=== PATIENT | male | born 1975 | race American Indian/Alaskan Native ===

== ENCOUNTER 2018-07-07 08:25 | Emergency (ER) | payer SELFPAY ==
[~2018-07-07] VITALS: Ht 188 cm; Wt 111.1 kg
[~2018-07-07 08:25] MED LIST: CEPH500 PO; COLC.6 PO; CYCL10 PO; HYDACE5 PO; IBUP400 PO; NAPR500 PO; PENVK500 PO; RXCEPH500 PO; TRAM50 PO
[2018-07-07] MEDS ORDERED: COLCRYS0.6 MG PO (10:15)
== END 2018-07-07 10:31 | disposition home or self-care (01) ==
LOC: ER 08:25
DX: M10.9 Gout, unspecified (principal); F17.200 Nicotine dependence, unspecified, uncomplicated; Z79.899 Other long term (current) drug therapy
CPT/HCPCS: 73630; 96372; 99283-25; J1885

== ENCOUNTER 2023-08-23 05:47 | Emergency (ER) | payer SELFPAY ==
[~2023-08-23] VITALS: Ht 188 cm; Wt 120.2 kg
[~2023-08-23 05:47] MED LIST changes: +COLCRYS0.6 MG PO
[2023-08-23 06:11] VITALS: BP 150/72
[2023-08-23] MEDS ORDERED: IBUP800 PO (06:13)
== END 2023-08-23 08:02 | disposition home or self-care (01) ==
LOC: ER 05:47
DX: M25.572 Pain in left ankle and joints of left foot (principal); M25.571 Pain in right ankle and joints of right foot
CPT/HCPCS: 73610; 99283-25